=== PATIENT | female | born 1955 | race Caucasian/White ===

== ENCOUNTER → 2017-12-14 | Outpatient (CLI) | payer MEDICARE ==
[~2017-12-14] MED LIST: LIDOCAINE-MPF 1%, 5ML ONE
== END | disposition home or self-care (01) ==
LOC: RAD 13:50
PROVIDERS: ATTEND Otolaryngology
DX: E21.4 Other specified disorders of parathyroid gland (principal)
CPT/HCPCS: 10022; 76536; 76942; 88173

== ENCOUNTER 2018-03-13 20:27 | Inpatient (IN) | payer MEDICARE ==
[~2018-03-13] VITALS: Ht 167.6 cm; Wt 98.2 kg
[2018-03-13] MEDS ORDERED: methylPREDNISolone SOD SUCC 125 MG/2 ML ONE (21:15)
[2018-03-13 21:16] LABS: BASOPHILS # (AUTO) 0.01 x10^3/uL (0-0.1); BASOPHILS % (AUTO) 0 % (0-1); EOSINOPHILS # (AUTO) 0.02 x10^3/uL (0-0.4); EOSINOPHILS % (AUTO) 0 % (1-7); LYMPHOCYTES # (AUTO) 0.64 x10^3/uL (1-3.4); LYMPHOCYTES % (AUTO) 16 % (22-44); MD NO; MEAN CORPUSCULAR HEMOGLOBIN 28.1 pg (27.0-34.8); MEAN CORPUSCULAR HGB CONC 34.1 g/dL (32.4-35.8); MEAN CORPUSCULAR VOLUME 82.3 fL (80-100); MEAN PLATELET VOLUME 9.9 fL (7.4-10.4); MONOCYTES # (AUTO) 0.37 x10^3/uL (0.2-0.8); MONOCYTES % (AUTO) 9 % (2-9); NEUTROPHILS # (AUTO) 2.91 x10^3/uL (1.8-6.8); NEUTROPHILS % (AUTO) 74 % (42-75); PLATELET COUNT 151 x10^3/uL (130-400); RED BLOOD COUNT 4.93 x10^6/uL (3.82-5.3); RED CELL DISTRIBUTION WIDTH 17.9 % (9.6-15.2)
[2018-03-13] MEDS: methylPREDNISolone SOD SUCC 125 MG/2 ML IVPush SCH ×2 (21:19→22:30)
[2018-03-13 21:21] LABS: ALANINE AMINOTRANSFERASE 39 U/L (12-78); ALBUMIN 3.5 g/dL (3.4-5.0); ANION GAP 9 mmol/L (5-15); CALCIUM 8.8 mg/dL (8.5-10.1); CHLORIDE 108 mmol/L (98-107); CREATININE 0.78 mg/dL (0.55-1.02)
[2018-03-13 21:24] LABS: ALKALINE PHOSPHATASE 125 U/L (45-117); BILIRUBIN,TOTAL 0.5 mg/dL (0.2-1.0); TOTAL PROTEIN 7.1 g/dL (6.4-8.2)
[2018-03-13] MEDS ORDERED: ALBUTEROL SULFATE 2.5 MG/3 ML NPPB ONE (21:30)
[2018-03-13] MEDS ORDERED: SODIUM CHLORIDE 0.9%, 500ML IVBOLUS ONE (21:30)
[2018-03-13] MEDS ORDERED: ALBUTEROL/IPRATROPIUM 2.5MG/0.5MG, 3 ML NPPB ONE (21:30)
[2018-03-13 21:47] LABS: RAPID INFLUENZA A Negative (Negative)
[2018-03-13 21:48] LABS: RAPID INFLUENZA B POSITIVE (Negative)
[2018-03-13] MEDS ORDERED: CEFTRIAXONE PMX 1GM/50ML 50 ML ONE (22:08)
[2018-03-13] MEDS ORDERED: METF500T17 PO (22:23)
[2018-03-13] MEDS ORDERED: DILT360C26 PO (22:23)
[2018-03-13] MEDS ORDERED: ASPI-496 PO (22:23)
[2018-03-13] MEDS ORDERED: FERR324T18 PO (22:23)
[2018-03-13] MEDS ORDERED: IRBE1TAB13 PO (22:23)
[2018-03-13] MEDS ORDERED: LEVO125T5 PO (22:23)
[2018-03-13] MEDS ORDERED: GABA300C10 PO (22:23)
[2018-03-13] MEDS ORDERED: RED600CA2 PO (22:23)
[2018-03-13] MEDS ORDERED: PRAZ2CAP2 PO (22:23)
[2018-03-13] MEDS ORDERED: OMEP40CA6 PO (22:23)
[2018-03-13] MEDS ORDERED: CHOL500045 PO (22:23)
[2018-03-13] MEDS ORDERED: AZITHROMYCIN 500 MG in SODIUM CHLORIDE 0.9% 250 ML IV ONE (22:30)
[2018-03-13] MEDS ORDERED: ONDANSETRON 2MG/ML, 2ML IVPush PRN (22:30)
[2018-03-13] MEDS ORDERED: CEFTRIAXONE PMX 1GM/50ML 50 ML IV ONE (22:30)
[2018-03-13] MEDS ORDERED: LABETALOL 5MG/ML, 20ML IVPush PRN (22:30)
[2018-03-13] MEDS ORDERED: GUAIFENESIN/DM 200-20MG, 10ML UDC PO PRN (22:30)
[2018-03-13] MEDS ORDERED: ENALAPRILAT 1.25 MG/ML, 2ML IVPush PRN (22:30)
[2018-03-13] MEDS: CEFTRIAXONE PMX 1GM/50ML 50 ML IV SCH (22:30)
[2018-03-13] MEDS ORDERED: DEXTROSE 50%, 50ML SYRINGE IVPush PRN (23:00)
[2018-03-13] MEDS ORDERED: DEXTROSE 4 GM TAB.CHEW PO PRN (23:00)
[2018-03-13] MEDS ORDERED: GLUCAGON 1 MG IM PRN (23:00)
[2018-03-13] MEDS ORDERED: ENALAPRILAT 1.25 MG/ML, 2ML ONE (23:14)
--- NOTE | 2018-03-13 23:26 | NUR ---
PT UP TO RESTROOM AND BACK INTO BED. PT WITH MODERATE WOB UPON RETURN. PT NOW BACK IN BED RESTING
[2018-03-13 23:56] VITALS: BP 161/81
[2018-03-14] MEDS: methylPREDNISolone SOD SUCC 125 MG/2 ML IVPush SCH ×5 (00:08→22:22)
[2018-03-14] MEDS: OSELTAMIVIR 75 MG CAPSULE PO SCH ×3 (00:21→20:34)
[2018-03-14] MEDS: ENOXAPARIN 40 MG/0.4 ML SQ SCH (00:21)
[2018-03-14] MEDS: ACETAMINOPHEN 325 MG TABLET PO PRN ×3 (00:30→19:35)
[2018-03-14 02:00] VITALS: BP 158/81
[2018-03-14 05:14] LABS: BASOPHILS % (AUTO) 0 % (0-1); EOSINOPHILS % (AUTO) 0 % (1-7); LYMPHOCYTES # (AUTO) 0.35 x10^3/uL (1-3.4); LYMPHOCYTES % (AUTO) 9 % (22-44); MD NO; MEAN CORPUSCULAR HGB CONC 33.8 g/dL (32.4-35.8); MONOCYTES # (AUTO) 0.07 x10^3/uL (0.2-0.8); MONOCYTES % (AUTO) 2 % (2-9); NEUTROPHILS # (AUTO) 3.66 x10^3/uL (1.8-6.8); NEUTROPHILS % (AUTO) 90 % (42-75); PLATELET COUNT 131 x10^3/uL (130-400); RED BLOOD COUNT 4.74 x10^6/uL (3.82-5.3); RED CELL DISTRIBUTION WIDTH 17.8 % (9.6-15.2)
[2018-03-14 05:15] LABS: ALBUMIN 3.2 g/dL (3.4-5.0); ANION GAP 10 mmol/L (5-15); CALCIUM 8.6 mg/dL (8.5-10.1); CHLORIDE 110 mmol/L (98-107)
[2018-03-14 05:19] LABS: ALANINE AMINOTRANSFERASE 37 U/L (12-78); ALKALINE PHOSPHATASE 120 U/L (45-117); BILIRUBIN,TOTAL 0.4 mg/dL (0.2-1.0); CREATININE 0.79 mg/dL (0.55-1.02); TOTAL PROTEIN 6.7 g/dL (6.4-8.2)
[2018-03-14] MEDS: LEVOTHYROXINE 125 MCG TABLET PO SCH (05:34)
[2018-03-14] MEDS: GABAPENTIN 300 MG CAPSULE PO SCH ×4 (05:35→20:34)
[2018-03-14] MEDS: ASPIRIN 81 MG TABLET EC PO SCH (05:35)
[2018-03-14] MEDS: OMEPRAZOLE 20 MG CAPSULE.DR PO SCH (05:35)
[2018-03-14 07:44] VITALS: BP 171/94
[2018-03-14] MEDS: DILTIAZEM CD 180 MG CAP.ER.24H PO SCH (07:55)
[2018-03-14] MEDS: PRAZOSIN 2 MG CAPSULE PO SCH ×2 (07:55→20:35)
[2018-03-14] MEDS: IRBESARTAN 300 MG TABLET PO SCH (07:55)
[2018-03-14] MEDS: FERROUS GLUCONATE 324 MG TABLET PO SCH (07:55)
[2018-03-14] MEDS: DOXYCYCLINE 100MG TABLET PO SCH ×2 (07:56→20:33)
[2018-03-14] MEDS: HYDROCHLOROTHIAZIDE 12.5 MG CAPSULE PO SCH (07:56)
[2018-03-14] MEDS: SODIUM CHLORIDE FLUSH 10ML SYR IVF SCH ×2 (09:00→20:36)
[2018-03-14] MEDS: INSULIN LISPRO 100 UNITS/ML, PEN SQ-INSULIN SCH ×4 (09:04→21:16)
[2018-03-14 12:35] VITALS: BP 134/77
[2018-03-14 19:21] VITALS: BP 136/79
[2018-03-14] MEDS: INSULIN GLARGINE 100 UNITS/ML, PEN SQ-INSULIN SCH (21:14)
[2018-03-14] MEDS: CEFTRIAXONE PMX 1GM/50ML 50 ML IV SCH (22:22)
[2018-03-15] MEDS: ENOXAPARIN 40 MG/0.4 ML SQ SCH (00:18)
[2018-03-15 01:45] VITALS: BP 153/80
[2018-03-15] MEDS: methylPREDNISolone SOD SUCC 125 MG/2 ML IVPush SCH ×2 (04:20→11:01)
[2018-03-15] MEDS: OMEPRAZOLE 20 MG CAPSULE.DR PO SCH (05:52)
[2018-03-15] MEDS: LEVOTHYROXINE 125 MCG TABLET PO SCH (05:53)
[2018-03-15] MEDS: GABAPENTIN 300 MG CAPSULE PO SCH ×2 (05:53→11:00)
[2018-03-15] MEDS: ASPIRIN 81 MG TABLET EC PO SCH (05:53)
[2018-03-15 07:20] VITALS: BP 161/87
[2018-03-15] MEDS: INSULIN GLARGINE 100 UNITS/ML, PEN SQ-INSULIN SCH (07:45)
[2018-03-15] MEDS: INSULIN LISPRO 100 UNITS/ML, PEN SQ-INSULIN SCH ×2 (07:45→11:01)
[2018-03-15] MEDS: SODIUM CHLORIDE FLUSH 10ML SYR IVF SCH (07:47)
[2018-03-15] MEDS: IRBESARTAN 300 MG TABLET PO SCH (07:47)
[2018-03-15] MEDS: HYDROCHLOROTHIAZIDE 12.5 MG CAPSULE PO SCH (07:48)
[2018-03-15] MEDS: DILTIAZEM CD 180 MG CAP.ER.24H PO SCH (07:48)
[2018-03-15] MEDS: FERROUS GLUCONATE 324 MG TABLET PO SCH (07:48)
[2018-03-15] MEDS: PRAZOSIN 2 MG CAPSULE PO SCH (07:49)
[2018-03-15] MEDS: DOXYCYCLINE 100MG TABLET PO SCH (07:49)
[2018-03-15] MEDS: OSELTAMIVIR 75 MG CAPSULE PO SCH (07:49)
[2018-03-15 07:54] VITALS: BP 169/84
[2018-03-15] MEDS ORDERED: DOXY100T PO (09:46)
[2018-03-15 13:40] VITALS: BP 165/75
== END 2018-03-15 15:23 | disposition home or self-care (01) | DRG 871 ==
LOC: ED 22:23 → SUATTDRO 22:24 → EDIP 22:35 → 3NW 23:37
PROVIDERS: ADMIT Internal Medicine; ATTEND Internal Medicine
DX: A41.9 Sepsis, unspecified organism (principal); J10.08 Influenza due to other identified influenza virus with other specified pneumonia; J96.01 Acute respiratory failure with hypoxia; J18.1 Lobar pneumonia, unspecified organism; E11.40 Type 2 diabetes mellitus with diabetic neuropathy, unspecified; E11.65 Type 2 diabetes mellitus with hyperglycemia; H35.30 Unspecified macular degeneration; I10 Essential (primary) hypertension; J98.01 Acute bronchospasm; M34.9 Systemic sclerosis, unspecified; Z87.891 Personal history of nicotine dependence
CPT/HCPCS: 36415; 71045; 80053; 82962; 83605; 84145; 85025; 87040; 87400; 94640; G0378; J0456; J0696; J1650; J7613; J7620; J1815; J2930; J7040; J7050

== ENCOUNTER 2019-10-04 18:15 | Inpatient (IN) | payer MEDICARE ==
[~2019-10-04] VITALS: Ht 167.6 cm; Wt 97.2 kg
[2019-10-04] VITALS (9 sets, daily range): BP systolic 101–128; BP diastolic 41–81
[~2019-10-04 18:15] MED LIST changes: +ASPI-496 PO; +CHOL500045 PO; +DILT360C26 PO; +DOXY100T PO; +FERR324T18 PO; +GABA300C10 PO; +IRBE1TAB13 PO; +LEVO125T5 PO; -LIDOCAINE-MPF 1%, 5ML ONE; +METF500T17 PO; +OMEP40CA42 PO; +PRAZ2CAP2 PO; +RED600CA2 PO
[2019-10-04] MEDS ORDERED: GABA600T7 PO ×2 (18:38→21:41)
[2019-10-04] MEDS ORDERED: METH2.5T PO ×2 (18:38→21:41)
[2019-10-04] MEDS ORDERED: FOLI-17 PO ×2 (18:38→21:41)
[2019-10-04] MEDS ORDERED: TRIA15OI TP (18:38)
[2019-10-04] MEDS ORDERED: DILT360C32 PO (18:38)
[2019-10-04] MEDS ORDERED: METF10007 PO (18:38)
[2019-10-04] MEDS ORDERED: SODIUM CHLORIDE 0.9% 1,000 ML IV ONE (18:50)
[2019-10-04] MEDS ORDERED: PANTOPRAZOLE 80 MG in SODIUM CHLORIDE 0.9% 50 ML IVPB ONE (18:50)
[2019-10-04] MEDS ORDERED: PANTOPRAZOLE 80 MG in SODIUM CHLORIDE 0.9% 100 ML IV SCH (18:50)
[2019-10-04] MEDS ORDERED: AZIT500T PO (18:56)
--- NOTE | 2019-10-04 18:56 | NUR ---
A&OX4, RESP EVEN & UNLABORED, SPEECH CLEAR. C/O SORE THROAT X 12 DAYS. HAS BEEN TAKING Z-GRISELDA (ONE MORE DOSE TO GO). DENIES FEVER. REPORTS DIARRHEA W/ DARK STOOL.
--- NOTE | 2019-10-04 18:57 | NUR ---
EKG AT BS
[2019-10-04] MEDS ORDERED: SODIUM CHLORIDE FLUSH 10ML SYR IVF ONE (19:00)
--- NOTE | 2019-10-04 19:10 | NUR ---
IV ATTEMPTED X 1; UNSUCCESSFUL
[2019-10-04 19:26] LABS: INTERNATIONAL NORMALIZED RATIO 1.04 (0.93-1.1); PROTHROMBIN TIME 10.7 Seconds (9.6-11.5)
[2019-10-04 19:29] LABS: % IRON SATURATION 82 % (20-55); ALANINE AMINOTRANSFERASE 58 U/L (12-78); ALBUMIN 2.9 g/dL (3.4-5.0); ANION GAP 6 mmol/L (5-15); CALCIUM 7.6 mg/dL (8.5-10.1); CHLORIDE 111 mmol/L (98-107); CREATININE 1.32 mg/dL (0.55-1.02); IRON LEVEL 201 mcg/dL (50-170); TOTAL IRON BINDING CAPACITY 246 mcg/dL (250-450)
[2019-10-04 19:44] LABS: MEAN CORPUSCULAR HEMOGLOBIN 35.5 pg (27.0-34.8); MEAN CORPUSCULAR HGB CONC 33.6 g/dL (32.4-35.8); MEAN CORPUSCULAR VOLUME 105.8 fL (80-100); MEAN PLATELET VOLUME 9.7 fL (7.4-10.4); PLATELET COUNT 64 x10^3/uL (130-400); RED BLOOD COUNT 1.65 x10^6/uL (3.82-5.3); RED CELL DISTRIBUTION WIDTH 29.6 % (9.6-15.2)
[2019-10-04 19:59] LABS: ALKALINE PHOSPHATASE 63 U/L (45-117); BILIRUBIN,TOTAL 0.7 mg/dL (0.2-1.0); HCT (SEDRATE) 17.4 % (34.6-47.8); TOTAL PROTEIN 5.3 g/dL (6.4-8.2)
[2019-10-04] MEDS ORDERED: MAGNESIUM SULFATE PMX 2GM/50ML 50 ML IV ONE (20:00)
--- NOTE | 2019-10-04 20:02 | NUR ---
IV ATTEMPTED X 2; UNSUCCESSFUL. WILL SEEK ASSISTANCE.
[2019-10-04 20:05] LABS: MD YES
[2019-10-04 20:12] LABS: EOS#(MANUAL) 0.09 x10^3/uL (0.0-0.4); EOS% (MANUAL) 4 % (1-7); LYMPH#(MANUAL) 0.41 x10^3/uL (1-3.4); LYMPHS% (MANUAL) 18 % (22-44); MONOS#(MANUAL) 0.02 x10^3/uL (0.3-2.7); MONOS% (MANUAL) 1 % (2-9); SEG#(MANUAL) 1.77 x10^3/uL (1.8-6.8); SEGS% (MANUAL) 77 % (42-75)
[2019-10-04 20:18] LABS: ANISOCYTOSIS 1+
[2019-10-04] MEDS ORDERED: MAGNESIUM SULFATE PMX 2GM/50ML 50 ML ONE (20:18)
[2019-10-04 20:19] LABS: <PLATELET ESTIMATE> DECREASED; OVALOCYTES 1+
[2019-10-04 20:23] LABS: <PLT MORPHOLOGY> NORMAL PLT MORPH
--- NOTE | 2019-10-04 20:25 | NUR ---
records request faxed to [facility]
--- NOTE | 2019-10-04 20:35 | NUR ---
DR RYAN AT
--- NOTE | 2019-10-04 20:58 | NUR ---
BLOOD TRANSFUSION EDUCATION DOCUMENT PROVIDED TO PT. BLOOD CONSENT SIGNED BY PT.
[2019-10-04] MEDS: PANTOPRAZOLE 80 MG in SODIUM CHLORIDE 0.9% 100 ML IV SCH (21:00)
[2019-10-04] MEDS ORDERED: OCTREOTIDE 50 MCG/ML, 1ML (0.05MG/ML) IVPush ONE (21:00)
--- NOTE | 2019-10-04 21:00 | NUR ---
PT AMBULATORY TO & FROM BONE BR W/OUT INCIDENT; GAIT STEADY; CHOSE TO WALK W/OUT OXYGEN. VOIDED SPECIMEN PROVIDED. RETURNED TO [facility], [place]. ROOM O2 SAT 88%. O2 2-1/2LNC REAPPLIED.
--- NOTE | 2019-10-04 21:07 | NUR ---
TRANSFUSION INITIATED
--- NOTE | 2019-10-04 21:10 | NUR ---
ISIS Elena NP AT BS. BLOOD INFUSING VIA GRAVITY FLOW. NO COMPLAINTS FROM PT REGARDING IV SITE.
[2019-10-04] MEDS ORDERED: hydrALAzine 20 MG/ML, 1ML IVPush PRN (21:30)
[2019-10-04] MEDS ORDERED: ONDANSETRON 2MG/ML, 2ML IVPush PRN (21:30)
[2019-10-04] MEDS ORDERED: LIDODERM 5% PATCH TD PRN (21:30)
[2019-10-04] MEDS ORDERED: DILT300C42 PO (21:41)
[2019-10-04] MEDS ORDERED: FERR324T18 PO (21:41)
[2019-10-04] MEDS ORDERED: IRBE1TAB13 PO (21:41)
[2019-10-04] MEDS ORDERED: METF500T17 PO (21:41)
[2019-10-04] MEDS ORDERED: ASPI-496 PO (21:41)
[2019-10-04] MEDS ORDERED: LEVO25TA4 PO (21:41)
[2019-10-04] MEDS ORDERED: OMEP40CA42 PO (21:41)
[2019-10-04] MEDS ORDERED: VITAMIN D PO (21:41)
--- NOTE | 2019-10-04 21:48 | NUR ---
PROTONIX BOLUS INFUSION COMPLETED.
[2019-10-04] MEDS ORDERED: PHENOL THROAT SPRAY BOTTLE MM PRN (22:00)
--- NOTE | 2019-10-04 22:10 | NUR ---
BLOOD TRANSFUSION UNIT #1 INFUSED. PT TOLERATED INFUSION WELL. NO COMPLAINTS ABOUT UPPER ARM IV SITE.
[2019-10-04 22:11] LABS: ABSOLUTE RETICS # 0.039 x10^6/uL (0.5-2.5); RETICULOCYTE COUNT % 2.39 % (0.5-1.5)
[2019-10-04 22:13] LABS: RED BLOOD COUNT 1.65 x10^6/uL (3.82-5.3)
--- NOTE | 2019-10-04 22:24 | NUR ---
PT REPORT TO MIGUEL EARL. PT CARE TRANSFERRED.
--- NOTE | 2019-10-04 22:26 | NUR ---
REPORT RECIEVED FROM MIGUEL RAMIREZ.
[2019-10-04 22:32] LABS: MICROSCOPIC INDICATED
[2019-10-04] MEDS ORDERED: OCTREOTIDE 100MCG/ML, 1ML (0.1MG/ML) ONE (22:33)
--- NOTE | 2019-10-04 22:58 | NUR ---
TRANSFUSION STARTED ON SECOND UNIT OF PACKED RED BLOOD CELLS. PATIENT UPDATED ON PLAN OF CARE. SEE ADDITIONAL CHARTING IN TRANSUFSION DOCUMATION. PATIENT DISPLEASED WITH THE AMOUNT OF TIME IT IS TAKING TO HAVE HER TRANSFERED TO FLOOR DUE TO THE BED BEING UNCOMFORTABLE. NO ADDITIONAL NEEDS NOTED AT THIS TIME. PATIENT VERBALIZED UNDERSTANDING OF BLOOD ADMNISTRATION PROCESS.
--- NOTE | 2019-10-04 23:38 | NUR ---
PATIENT TRANSFERED TO FLOOR WITH BLOOD PRODUCT ADMINISTRATING. PATIENT FINISHED FIRST 30MINS OF ADMINISTRATION PRIOR TO TRANSPORTATION. MIGUEL GONZALEZ RECEIVED REPORT.
[2019-10-05] VITALS (9 sets, daily range): BP systolic 112–154; BP diastolic 71–82
[2019-10-05 06:20] LABS: ANION GAP 4 mmol/L (5-15); CALCIUM 7.9 mg/dL (8.5-10.1); CHLORIDE 114 mmol/L (98-107); CREATININE 1.06 mg/dL (0.55-1.02)
[2019-10-05 06:42] LABS: MD YES; MEAN CORPUSCULAR HEMOGLOBIN 32.7 pg (27.0-34.8); MEAN CORPUSCULAR HGB CONC 33.2 g/dL (32.4-35.8); MEAN CORPUSCULAR VOLUME 98.7 fL (80-100); MEAN PLATELET VOLUME 9.1 fL (7.4-10.4); RED BLOOD COUNT 2.74 x10^6/uL (3.82-5.3); RED CELL DISTRIBUTION WIDTH 25.1 % (9.6-15.2)
[2019-10-05 06:44] LABS: PLATELET COUNT 42 x10^3/uL (130-400)
[2019-10-05 06:45] LABS: ANISOCYTOSIS 1+; EOS#(MANUAL) 0.07 x10^3/uL (0.0-0.4); EOS% (MANUAL) 3 % (1-7); LYMPH#(MANUAL) 0.22 x10^3/uL (1-3.4); LYMPHS% (MANUAL) 10 % (22-44); OVALOCYTES 1+; SEG#(MANUAL) 1.91 x10^3/uL (1.8-6.8); SEGS% (MANUAL) 87 % (42-75); TEAR DROPS 1+
[2019-10-05 06:46] LABS: <PLATELET ESTIMATE> DECREASED; <PLT MORPHOLOGY> NORMAL PLT MORPH
[2019-10-05] MEDS: NYSTATIN/TRIAMCINOLONE OINT 15GM TP SCH ×2 (09:20→21:47)
[2019-10-05] MEDS: OCTREOTIDE 500 MCG in SODIUM CHLORIDE 0.9% 99 ML IV SCH (09:20)
[2019-10-05] MEDS: PANTOPRAZOLE 80 MG in SODIUM CHLORIDE 0.9% 100 ML IV SCH ×2 (10:02→18:16)
[2019-10-05] MEDS: ACETAMINOPHEN 325 MG TABLET PO PRN ×2 (12:34→18:07)
[2019-10-05] MEDS: LACTATED RINGERS 1,000 ML IV SCH (14:30)
[2019-10-05] MEDS: GABAPENTIN 300 MG CAPSULE PO SCH ×2 (15:37→21:47)
[2019-10-05] MEDS ORDERED: OMNIPAQUE 350 MG/ML, 100ML BOTTLE ONE (17:16)
[2019-10-05] MEDS: DILTIAZEM 300 MG CAP.ER.24H PO SCH (18:07)
[2019-10-06 01:05] VITALS: BP 112/68
[2019-10-06] MEDS: PANTOPRAZOLE 80 MG in SODIUM CHLORIDE 0.9% 100 ML IV SCH (03:12)
[2019-10-06] MEDS: LACTATED RINGERS 1,000 ML IV SCH ×2 (03:13→19:48)
[2019-10-06] MEDS: LEVOTHYROXINE 125 MCG TABLET PO SCH (05:31)
[2019-10-06] MEDS: OCTREOTIDE 500 MCG in SODIUM CHLORIDE 0.9% 99 ML IV SCH (05:31)
[2019-10-06 05:47] LABS: ALANINE AMINOTRANSFERASE 58 U/L (12-78); ALBUMIN 3.2 g/dL (3.4-5.0); ANION GAP 4 mmol/L (5-15); CALCIUM 8.3 mg/dL (8.5-10.1); CHLORIDE 110 mmol/L (98-107); CREATININE 0.85 mg/dL (0.55-1.02)
[2019-10-06 05:50] LABS: ALKALINE PHOSPHATASE 71 U/L (45-117); BILIRUBIN,TOTAL 1.6 mg/dL (0.2-1.0); TOTAL PROTEIN 5.7 g/dL (6.4-8.2)
[2019-10-06 06:32] LABS: MEAN CORPUSCULAR HEMOGLOBIN 33.6 pg (27.0-34.8); MEAN CORPUSCULAR HGB CONC 34.8 g/dL (32.4-35.8); MEAN CORPUSCULAR VOLUME 96.5 fL (80-100); MEAN PLATELET VOLUME 9.4 fL (7.4-10.4); RED BLOOD COUNT 2.57 x10^6/uL (3.82-5.3); RED CELL DISTRIBUTION WIDTH 23.1 % (9.6-15.2)
[2019-10-06 06:33] LABS: MD YES
[2019-10-06 06:34] LABS: PLATELET COUNT 47 x10^3/uL (130-400)
[2019-10-06 06:36] LABS: ANISOCYTOSIS 1+; EOS#(MANUAL) 0.05 x10^3/uL (0.0-0.4); EOS% (MANUAL) 3 % (1-7); LYMPH#(MANUAL) 0.25 x10^3/uL (1-3.4); LYMPHS% (MANUAL) 14 % (22-44); NRBC % (MANUAL) 1 % (0-1); SEG#(MANUAL) 1.49 x10^3/uL (1.8-6.8); SEGS% (MANUAL) 83 % (42-75)
[2019-10-06 06:37] LABS: OVALOCYTES 1+
[2019-10-06 06:38] LABS: <PLATELET ESTIMATE> DECREASED; <PLT MORPHOLOGY> NORMAL PLT MORPH; TEAR DROPS 1+
[2019-10-06] MEDS: INSULIN LISPRO 100 UNITS/ML, PEN SQ-INSULIN SCH ×4 (07:00→20:57)
[2019-10-06 07:52] VITALS: BP 130/79
[2019-10-06] MEDS: FOLIC ACID 1 MG TABLET PO SCH (07:55)
[2019-10-06] MEDS: GABAPENTIN 300 MG CAPSULE PO SCH ×2 (07:55→20:57)
[2019-10-06] MEDS: NYSTATIN/TRIAMCINOLONE OINT 15GM TP SCH ×2 (07:56→20:57)
[2019-10-06 07:57] LABS: D-DIMER (DIC) 2.23 ug/mlFEU (0.00-0.52); PROTIME 10.7 Seconds (9.6-11.5)
[2019-10-06] MEDS ORDERED: CHLORHEXIDINE 15 ML UDC ONE ×2 (08:36→08:39)
[2019-10-06] MEDS ORDERED: CHLORHEXIDINE 15 ML UDC MM ONE (09:00)
[2019-10-06] MEDS ORDERED: DILTIAZEM 300 MG CAP.ER.24H PO SCH (09:00)
[2019-10-06] MEDS ORDERED: DILTIAZEM CD 180 MG CAP.ER.24H PO SCH (09:00)
[2019-10-06] MEDS ORDERED: METHOTREXATE 2.5 MG TABLET PO SCH (09:00)
[2019-10-06] MEDS ORDERED: OXYcodone 5 MG/5 ML ORAL.SOL UDC ONE (09:15)
[2019-10-06] MEDS ORDERED: ACETAMINOPHEN 650 MG/20.3 ML UDC ONE (09:15)
[2019-10-06] MEDS ORDERED: DIAZEPAM 5 MG/ML, 2ML IVPush PRN (09:30)
[2019-10-06] MEDS ORDERED: MEPERIDINE/PF 25MG/0.5ML IVPush PRN (09:30)
[2019-10-06] MEDS ORDERED: OXYcodone 5 MG/5 ML ORAL.SOL UDC PO PRN (09:30)
[2019-10-06] MEDS ORDERED: FENTANYL PF 100 MCG/2ML IV PRN (09:30)
[2019-10-06] MEDS ORDERED: ACETAMINOPHEN 325 MG TABLET PO PRN (09:30)
[2019-10-06] MEDS ORDERED: KETOROLAC 30 MG/1 ML IV PRN (09:30)
[2019-10-06] MEDS ORDERED: HYDROmorphone 2 MG/ML, 1ML IVPush PRN (09:30)
[2019-10-06] MEDS ORDERED: PROMETHAZINE 25 MG/ML, 1ML IV PRN (09:30)
[2019-10-06] MEDS ORDERED: LABETALOL 5MG/ML, 20ML IV PRN (09:30)
[2019-10-06] MEDS ORDERED: hydrALAzine 20 MG/ML, 1ML IV PRN (09:30)
[2019-10-06] MEDS ORDERED: ALBUTEROL SULFATE 2.5 MG/3 ML NPPB PRN (09:30)
[2019-10-06] MEDS: DILTIAZEM 300 MG CAP.ER.24H PO SCH (10:55)
[2019-10-06] MEDS: CEFTRIAXONE PMX 1GM/50ML 50 ML IV SCH (12:10)
[2019-10-06 12:22] VITALS: BP 132/71
[2019-10-06] MEDS: OXYcodone 5 MG/5 ML ORAL.SOL UDC PO PRN ×2 (13:30→17:42)
[2019-10-06] MEDS: FLUCONAZOLE 200 MG/100 ML 100 ML IV SCH (13:30)
[2019-10-06] MEDS: maalox/diphenh/lido/sucralfate 5 ML PO SCH (16:00)
[2019-10-06] MEDS ORDERED: PROPOFOL 10 MG/ML, 50ML ONE (16:18)
[2019-10-06 16:27] VITALS: BP 129/73
[2019-10-06] MEDS: ACETAMINOPHEN 650 MG/20.3 ML UDC PO PRN (17:42)
[2019-10-06 19:57] VITALS: BP 134/76
[2019-10-07 00:22] VITALS: BP 160/82
[2019-10-07] MEDS: ACETAMINOPHEN 650 MG/20.3 ML UDC PO PRN ×2 (00:32→06:27)
[2019-10-07] MEDS: OXYcodone 5 MG/5 ML ORAL.SOL UDC PO PRN ×2 (00:36→06:27)
[2019-10-07 04:49] LABS: ABSOLUTE RETICS # 0.058 x10^6/uL (0.5-2.5); RED BLOOD COUNT 2.55 x10^6/uL (3.82-5.3); RETICULOCYTE COUNT % 2.29 % (0.5-1.5)
[2019-10-07] MEDS: LEVOTHYROXINE 125 MCG TABLET PO SCH (06:24)
[2019-10-07 06:35] LABS: ANION GAP 4 mmol/L (5-15); CALCIUM 8.4 mg/dL (8.5-10.1); CHLORIDE 111 mmol/L (98-107); CREATININE 0.75 mg/dL (0.55-1.02)
[2019-10-07 06:43] LABS: MEAN CORPUSCULAR HEMOGLOBIN 33.1 pg (27.0-34.8); MEAN CORPUSCULAR HGB CONC 34.2 g/dL (32.4-35.8); RED BLOOD COUNT 2.52 x10^6/uL (3.82-5.3); RED CELL DISTRIBUTION WIDTH 23.5 % (9.6-15.2)
[2019-10-07] MEDS: INSULIN LISPRO 100 UNITS/ML, PEN SQ-INSULIN SCH ×4 (07:00→21:00)
[2019-10-07 07:02] LABS: MD YES; MEAN PLATELET VOLUME 9.7 fL (7.4-10.4)
[2019-10-07 07:06] LABS: <PLATELET ESTIMATE> DECREASED; <PLT MORPHOLOGY> NORMAL PLT MORPH; ANISOCYTOSIS 1+; LYMPH#(MANUAL) 0.36 x10^3/uL (1-3.4); LYMPHS% (MANUAL) 19 % (22-44); MONOS#(MANUAL) 0.06 x10^3/uL (0.3-2.7); MONOS% (MANUAL) 3 % (2-9); OVALOCYTES 1+; SEG#(MANUAL) 1.48 x10^3/uL (1.8-6.8); SEGS% (MANUAL) 78 % (42-75); TEAR DROPS 1+
[2019-10-07 07:10] LABS: PLATELET COUNT 39 x10^3/uL (130-400)
[2019-10-07 07:20] VITALS: BP 135/76
[2019-10-07] MEDS: NYSTATIN/TRIAMCINOLONE OINT 15GM TP SCH ×2 (09:00→21:00)
[2019-10-07] MEDS: maalox/diphenh/lido/sucralfate 5 ML PO SCH ×3 (09:52→17:17)
[2019-10-07] MEDS: LACTATED RINGERS 1,000 ML IV SCH ×2 (09:52→17:00)
[2019-10-07] MEDS: GABAPENTIN 300 MG CAPSULE PO SCH ×2 (09:54→21:30)
[2019-10-07] MEDS: FOLIC ACID 1 MG TABLET PO SCH (09:54)
[2019-10-07] MEDS: DILTIAZEM 300 MG CAP.ER.24H PO SCH (09:54)
[2019-10-07] MEDS ORDERED: HYDROmorphone 1 MG/ML, 1ML INJ IM PRN (11:00)
[2019-10-07 12:44] VITALS: BP 137/75
[2019-10-07] MEDS ORDERED: FLUMAZENIL 0.1 MG/1 ML, 5ML ONE (13:01)
[2019-10-07] MEDS ORDERED: NALOXONE 1 MG/ML, 2ML ONE (13:01)
[2019-10-07] MEDS ORDERED: MIDAZOLAM 1 MG/ML, 5ML ONE (13:01)
[2019-10-07] MEDS ORDERED: FENTANYL PF 100 MCG/2ML ONE (13:01)
[2019-10-07] MEDS: FLUCONAZOLE 200 MG/100 ML 100 ML IV SCH (15:01)
[2019-10-07] MEDS: CEFTRIAXONE PMX 1GM/50ML 50 ML IV SCH (15:02)
[2019-10-07 16:25] LABS: ANA SCREEN POSITIVE (Negative); ANTI-NUCLEAR ANTIBODY PATTERN CENTROMERE
[2019-10-07] MEDS: HYDROmorphone 1 MG/ML, 1ML INJ IVPush PRN ×2 (17:17→21:37)
[2019-10-07 20:06] VITALS: BP 142/75
[2019-10-08 02:23] VITALS: BP 136/69
[2019-10-08 05:50] LABS: MEAN CORPUSCULAR HEMOGLOBIN 32.7 pg (27.0-34.8); MEAN CORPUSCULAR HGB CONC 33.7 g/dL (32.4-35.8); MEAN CORPUSCULAR VOLUME 97.1 fL (80-100); MEAN PLATELET VOLUME 9.4 fL (7.4-10.4); RED BLOOD COUNT 2.22 x10^6/uL (3.82-5.3); RED CELL DISTRIBUTION WIDTH 22.8 % (9.6-15.2)
[2019-10-08 05:53] LABS: CHLORIDE 111 mmol/L (98-107)
[2019-10-08 05:58] LABS: PLATELET COUNT 25 x10^3/uL (130-400)
[2019-10-08 06:01] LABS: ALANINE AMINOTRANSFERASE 54 U/L (12-78); ALBUMIN 2.6 g/dL (3.4-5.0); ALKALINE PHOSPHATASE 64 U/L (45-117); ANION GAP 3 mmol/L (5-15); BILIRUBIN,TOTAL 0.7 mg/dL (0.2-1.0); CALCIUM 8.1 mg/dL (8.5-10.1); CREATININE 0.67 mg/dL (0.55-1.02); TOTAL PROTEIN 4.9 g/dL (6.4-8.2)
[2019-10-08 06:12] LABS: MD YES
[2019-10-08 06:14] LABS: ANISOCYTOSIS 1+; EOS#(MANUAL) 0.11 x10^3/uL (0.0-0.4); EOS% (MANUAL) 7 % (1-7); LYMPH#(MANUAL) 0.32 x10^3/uL (1-3.4); LYMPHS% (MANUAL) 21 % (22-44); MONOS#(MANUAL) 0.06 x10^3/uL (0.3-2.7); MONOS% (MANUAL) 4 % (2-9); OVALOCYTES 1+; SEG#(MANUAL) 1.02 x10^3/uL (1.8-6.8); SEGS% (MANUAL) 68 % (42-75); TEAR DROPS 1+
[2019-10-08 06:15] LABS: <PLATELET ESTIMATE> DECREASED; <PLT MORPHOLOGY> NORMAL PLT MORPH
[2019-10-08] MEDS: HYDROmorphone 1 MG/ML, 1ML INJ IVPush PRN ×4 (06:32→21:41)
[2019-10-08] MEDS: LEVOTHYROXINE 125 MCG TABLET PO SCH (06:32)
[2019-10-08] MEDS: INSULIN LISPRO 100 UNITS/ML, PEN SQ-INSULIN SCH ×4 (07:00→21:00)
[2019-10-08 07:56] VITALS: BP 151/82
[2019-10-08] MEDS: DILTIAZEM 300 MG CAP.ER.24H PO SCH (08:37)
[2019-10-08] MEDS: GABAPENTIN 300 MG CAPSULE PO SCH ×2 (08:38→21:38)
[2019-10-08] MEDS: maalox/diphenh/lido/sucralfate 5 ML PO SCH (08:38)
[2019-10-08] MEDS: FOLIC ACID 1 MG TABLET PO SCH (08:38)
[2019-10-08] MEDS: NYSTATIN/TRIAMCINOLONE OINT 15GM TP SCH ×2 (08:39→21:00)
[2019-10-08 12:15] LABS: CLOSTRIDIUM DIFFICILE ANTIGEN NEGATIVE; CLOSTRIDIUM DIFFICILE TOXIN NEGATIVE (Negative)
[2019-10-08] MEDS: [UNRECOGNIZED DRUG - REMARK] PO SCH ×4 (12:28→23:39)
[2019-10-08] MEDS: CEFTRIAXONE PMX 1GM/50ML 50 ML IV SCH (12:28)
[2019-10-08] MEDS: FLUCONAZOLE 200 MG/100 ML 100 ML IV SCH (13:12)
[2019-10-08 13:47] VITALS: BP 117/61
[2019-10-08 20:21] VITALS: BP 149/46
[2019-10-09 02:00] VITALS: BP 138/54
[2019-10-09] MEDS: HYDROmorphone 1 MG/ML, 1ML INJ IVPush PRN ×4 (02:33→20:01)
[2019-10-09 02:41] VITALS: BP 155/77
[2019-10-09] MEDS: [UNRECOGNIZED DRUG - REMARK] PO SCH ×5 (06:09→22:06)
[2019-10-09] MEDS: LEVOTHYROXINE 125 MCG TABLET PO SCH (06:09)
[2019-10-09 06:25] LABS: MEAN CORPUSCULAR HEMOGLOBIN 32.8 pg (27.0-34.8); MEAN CORPUSCULAR HGB CONC 33.3 g/dL (32.4-35.8); MEAN CORPUSCULAR VOLUME 98.5 fL (80-100); MEAN PLATELET VOLUME 9.3 fL (7.4-10.4); RED BLOOD COUNT 2.36 x10^6/uL (3.82-5.3); RED CELL DISTRIBUTION WIDTH 23.7 % (9.6-15.2)
[2019-10-09 06:36] LABS: PLATELET COUNT 25 x10^3/uL (130-400)
[2019-10-09 06:44] LABS: MD YES
[2019-10-09 06:47] LABS: ANISOCYTOSIS 1+; BAND#(MANUAL) 0.03 x10^3/uL; BANDS%(MANUAL) 1 % (0-7); EOS% (MANUAL) 4 % (1-7); LYMPH#(MANUAL) 0.34 x10^3/uL (1-3.4); LYMPHS% (MANUAL) 13 % (22-44); MONOS% (MANUAL) 4 % (2-9); OVALOCYTES 1+; SEG#(MANUAL) 2.03 x10^3/uL (1.8-6.8); SEGS% (MANUAL) 78 % (42-75); TEAR DROPS 1+
[2019-10-09 06:48] LABS: <PLATELET ESTIMATE> DECREASED; <PLT MORPHOLOGY> NORMAL PLT MORPH; POLYCHROMASIA 1+
[2019-10-09] MEDS: INSULIN LISPRO 100 UNITS/ML, PEN SQ-INSULIN SCH ×4 (07:00→19:59)
[2019-10-09 08:18] VITALS: BP 146/77
[2019-10-09] MEDS: FOLIC ACID 1 MG TABLET PO SCH (08:37)
[2019-10-09] MEDS: GABAPENTIN 300 MG CAPSULE PO SCH ×2 (08:37→19:59)
[2019-10-09] MEDS: DILTIAZEM 300 MG CAP.ER.24H PO SCH (08:38)
[2019-10-09] MEDS: NYSTATIN/TRIAMCINOLONE OINT 15GM TP SCH ×2 (09:00→20:00)
[2019-10-09] MEDS: LACTATED RINGERS 1,000 ML IV SCH (10:00)
[2019-10-09] MEDS: CEFTRIAXONE PMX 1GM/50ML 50 ML IV SCH ×2 (12:12→15:25)
[2019-10-09 15:14] VITALS: BP 157/79
[2019-10-09 19:07] VITALS: BP 170/85
[2019-10-10 00:08] VITALS: BP 159/80
[2019-10-10] MEDS: HYDROmorphone 1 MG/ML, 1ML INJ IVPush PRN ×6 (00:12→22:41)
[2019-10-10] MEDS: [UNRECOGNIZED DRUG - REMARK] PO SCH (05:41)
[2019-10-10] MEDS: LEVOTHYROXINE 125 MCG TABLET PO SCH (05:41)
[2019-10-10 05:53] LABS: MD YES; MEAN CORPUSCULAR HEMOGLOBIN 33.2 pg (27.0-34.8); MEAN CORPUSCULAR HGB CONC 33.8 g/dL (32.4-35.8); MEAN CORPUSCULAR VOLUME 98.4 fL (80-100); MEAN PLATELET VOLUME 9.9 fL (7.4-10.4); RED BLOOD COUNT 2.37 x10^6/uL (3.82-5.3); RED CELL DISTRIBUTION WIDTH 26.3 % (9.6-15.2)
[2019-10-10 05:55] LABS: BAND#(MANUAL) 0.04 x10^3/uL; BANDS%(MANUAL) 1 % (0-7); EOS#(MANUAL) 0.11 x10^3/uL (0.0-0.4); EOS% (MANUAL) 3 % (1-7); METAMYELOCYTES# (MANUAL) 0.04 x10^3/uL (0-0); METAMYELOCYTES% (MANUAL) 1 % (0-1); NRBC % (MANUAL) 2 % (0-1)
[2019-10-10 05:56] LABS: ANISOCYTOSIS 2+; LYMPH#(MANUAL) 0.42 x10^3/uL (1-3.4); LYMPHS% (MANUAL) 12 % (22-44); MICROCYTOSIS 1+; MONOS#(MANUAL) 0.32 x10^3/uL (0.3-2.7); MONOS% (MANUAL) 9 % (2-9); SEG#(MANUAL) 2.59 x10^3/uL (1.8-6.8); SEGS% (MANUAL) 74 % (42-75)
[2019-10-10 05:57] LABS: OVALOCYTES 1+; PLATELET COUNT 16 x10^3/uL (130-400); POLYCHROMASIA 1+; TEAR DROPS 1+
[2019-10-10 05:58] LABS: <PLATELET ESTIMATE> DECREASED; <PLT MORPHOLOGY> NORMAL PLT MORPH
[2019-10-10] MEDS: INSULIN LISPRO 100 UNITS/ML, PEN SQ-INSULIN SCH ×4 (08:26→22:13)
[2019-10-10] MEDS ORDERED: SODIUM CHLORIDE NASAL SPRAY 45ML BOTTLE NAS PRN (09:30)
[2019-10-10 09:31] VITALS: BP 151/77
[2019-10-10] MEDS ORDERED: SUCRALFATE 1 GM/10 ML UDC ONE (09:40)
[2019-10-10] MEDS ORDERED: DIPHENHYDRAMINE 12.5MG/5ML, 10ML UDC ONE (09:40)
[2019-10-10] MEDS ORDERED: LIDOCAINE 2% VISCOUS 15 ML UDC ONE (09:40)
[2019-10-10] MEDS ORDERED: prednisOLONE 15 MG/5 ML ORAL SOLN ONE (09:40)
[2019-10-10] MEDS ORDERED: ALUMINUM/MAG/SIMETHICONE 30 ML UDC ONE (09:40)
[2019-10-10] MEDS: DILTIAZEM 300 MG CAP.ER.24H PO SCH (09:44)
[2019-10-10] MEDS: GABAPENTIN 300 MG CAPSULE PO SCH ×2 (09:44→22:02)
[2019-10-10] MEDS: FOLIC ACID 1 MG TABLET PO SCH (09:44)
[2019-10-10] MEDS: IRBESARTAN 150 MG TABLET PO SCH ×2 (09:45→22:02)
[2019-10-10] MEDS: NYSTATIN/TRIAMCINOLONE OINT 15GM TP SCH ×2 (09:45→22:06)
[2019-10-10] MEDS: MAALOX PO SCH ×4 (10:00→22:05)
[2019-10-10] MEDS: CARAFATE PO SCH ×4 (10:00→22:05)
[2019-10-10] MEDS ORDERED: MAALOX PO SCH (10:00)
[2019-10-10] MEDS ORDERED: BENADRYL PO SCH (10:00)
[2019-10-10] MEDS: PREDNISOLONE PO SCH ×4 (10:00→22:05)
[2019-10-10] MEDS: BENADRYL PO SCH ×4 (10:00→22:05)
[2019-10-10] MEDS ORDERED: LIDO PO SCH (10:00)
[2019-10-10] MEDS ORDERED: CARAFATE PO SCH (10:00)
[2019-10-10] MEDS: LIDO PO SCH ×4 (10:00→22:05)
[2019-10-10] MEDS ORDERED: PREDNISOLONE PO SCH (10:00)
[2019-10-10 14:06] VITALS: BP 161/82
[2019-10-10 19:11] VITALS: BP 154/79
[2019-10-11 01:51] VITALS: BP 141/67
[2019-10-11] MEDS: HYDROmorphone 1 MG/ML, 1ML INJ IVPush PRN ×6 (02:46→23:27)
[2019-10-11] MEDS: PREDNISOLONE PO SCH ×2 (02:49→06:41)
[2019-10-11] MEDS: LIDO PO SCH ×2 (02:49→06:41)
[2019-10-11] MEDS: CARAFATE PO SCH ×2 (02:49→06:41)
[2019-10-11] MEDS: BENADRYL PO SCH ×2 (02:49→06:41)
[2019-10-11] MEDS: MAALOX PO SCH ×2 (02:49→06:41)
[2019-10-11 04:57] LABS: MEAN CORPUSCULAR HEMOGLOBIN 32.2 pg (27.0-34.8); MEAN CORPUSCULAR HGB CONC 32.8 g/dL (32.4-35.8); MEAN PLATELET VOLUME 10.1 fL (7.4-10.4); RED BLOOD COUNT 2.31 x10^6/uL (3.82-5.3); RED CELL DISTRIBUTION WIDTH 26.6 % (9.6-15.2)
[2019-10-11 04:59] LABS: PLATELET COUNT 23 x10^3/uL (130-400)
[2019-10-11 05:45] LABS: MD YES
[2019-10-11 05:48] LABS: ANISOCYTOSIS 2+; BANDS%(MANUAL) 2 % (0-7); EOS% (MANUAL) 4 % (1-7); LYMPH#(MANUAL) 0.61 x10^3/uL (1-3.4); LYMPHS% (MANUAL) 12 % (22-44); METAMYELOCYTES# (MANUAL) 0.05 x10^3/uL (0-0); METAMYELOCYTES% (MANUAL) 1 % (0-1); MICROCYTOSIS 1+; MONOS#(MANUAL) 0.51 x10^3/uL (0.3-2.7); MONOS% (MANUAL) 10 % (2-9); NRBC % (MANUAL) 5 % (0-1); OVALOCYTES 1+; POLYCHROMASIA 1+; SEG#(MANUAL) 3.62 x10^3/uL (1.8-6.8); SEGS% (MANUAL) 71 % (42-75)
[2019-10-11 05:49] LABS: <PLATELET ESTIMATE> DECREASED; <PLT MORPHOLOGY> NORMAL PLT MORPH; TEAR DROPS 1+
[2019-10-11 05:53] LABS: SPHEROCYTES 1+
[2019-10-11] MEDS: LEVOTHYROXINE 125 MCG TABLET PO SCH (06:41)
[2019-10-11] MEDS: INSULIN LISPRO 100 UNITS/ML, PEN SQ-INSULIN SCH ×4 (06:48→21:00)
[2019-10-11] MEDS ORDERED: HYDROmorphone 1 MG/ML, 1ML INJ IV ONE (09:00)
[2019-10-11] MEDS: NYSTATIN/TRIAMCINOLONE OINT 15GM TP SCH ×2 (09:00→21:50)
[2019-10-11 09:12] VITALS: BP 143/77
[2019-10-11] MEDS: IRBESARTAN 150 MG TABLET PO SCH ×2 (09:52→21:49)
[2019-10-11] MEDS: GABAPENTIN 300 MG CAPSULE PO SCH ×2 (09:53→21:49)
[2019-10-11] MEDS: DILTIAZEM 300 MG CAP.ER.24H PO SCH (09:53)
[2019-10-11] MEDS: FOLIC ACID 1 MG TABLET PO SCH (09:53)
[2019-10-11] MEDS: LIDO PO PRN ×3 (11:38→23:25)
[2019-10-11] MEDS: BENADRYL PO PRN ×3 (11:38→23:25)
[2019-10-11] MEDS: PREDNISOLONE PO PRN ×3 (11:38→23:25)
[2019-10-11] MEDS: MAALOX PO PRN ×3 (11:38→23:25)
[2019-10-11] MEDS: CARAFATE PO PRN ×3 (11:38→23:25)
[2019-10-11] MEDS ORDERED: HYDROmorphone 1 MG/ML, 1ML INJ IVPush PRN (12:00)
[2019-10-11 13:01] VITALS: BP 157/83
[2019-10-11 18:56] VITALS: BP 148/71
[2019-10-12] MEDS: HYDROmorphone 1 MG/ML, 1ML INJ IVPush PRN ×7 (03:11→22:58)
[2019-10-12 03:13] VITALS: BP 133/74
[2019-10-12] MEDS: LEVOTHYROXINE 125 MCG TABLET PO SCH (06:32)
[2019-10-12 06:58] LABS: MEAN CORPUSCULAR HEMOGLOBIN 32.3 pg (27.0-34.8); MEAN CORPUSCULAR HGB CONC 32.8 g/dL (32.4-35.8); MEAN CORPUSCULAR VOLUME 98.5 fL (80-100); MEAN PLATELET VOLUME 9.3 fL (7.4-10.4); PLATELET COUNT 53 x10^3/uL (130-400); RED BLOOD COUNT 2.64 x10^6/uL (3.82-5.3); RED CELL DISTRIBUTION WIDTH 26.1 % (9.6-15.2)
[2019-10-12] MEDS: INSULIN LISPRO 100 UNITS/ML, PEN SQ-INSULIN SCH ×4 (07:00→20:23)
[2019-10-12 07:29] LABS: MD YES
[2019-10-12 07:31] LABS: <PLATELET ESTIMATE> DECREASED; <PLT MORPHOLOGY> NORMAL PLT MORPH; ANISOCYTOSIS 2+; BAND#(MANUAL) 0.07 x10^3/uL; BANDS%(MANUAL) 1 % (0-7); BASOS#(MANUAL) 0.07 x10^3/uL (0-0.1); BASOS% (MANUAL) 1 % (0-1); EOS#(MANUAL) 0.33 x10^3/uL (0.0-0.4); EOS% (MANUAL) 5 % (1-7); LYMPH#(MANUAL) 0.39 x10^3/uL (1-3.4); LYMPHS% (MANUAL) 6 % (22-44); METAMYELOCYTES# (MANUAL) 0.13 x10^3/uL (0-0); METAMYELOCYTES% (MANUAL) 2 % (0-1); MICROCYTOSIS 1+; MONOS#(MANUAL) 0.46 x10^3/uL (0.3-2.7); MONOS% (MANUAL) 7 % (2-9); NRBC % (MANUAL) 5 % (0-1); OVALOCYTES 1+; POLYCHROMASIA 1+; SEG#(MANUAL) 5.07 x10^3/uL (1.8-6.8); SEGS% (MANUAL) 78 % (42-75); SPHEROCYTES 1+; TEAR DROPS 1+
[2019-10-12 07:32] LABS: BASOPHILLIC STIPPLING 1+
[2019-10-12] MEDS: PREDNISOLONE PO PRN ×3 (08:29→21:55)
[2019-10-12] MEDS: IRBESARTAN 150 MG TABLET PO SCH ×2 (08:29→21:52)
[2019-10-12] MEDS: MAALOX PO PRN ×3 (08:29→21:55)
[2019-10-12] MEDS: FOLIC ACID 1 MG TABLET PO SCH (08:29)
[2019-10-12] MEDS: CARAFATE PO PRN ×3 (08:29→21:55)
[2019-10-12] MEDS: DILTIAZEM 300 MG CAP.ER.24H PO SCH (08:29)
[2019-10-12] MEDS: GABAPENTIN 300 MG CAPSULE PO SCH ×2 (08:29→21:52)
[2019-10-12] MEDS: BENADRYL PO PRN ×3 (08:29→21:55)
[2019-10-12] MEDS: LIDO PO PRN ×3 (08:29→21:55)
[2019-10-12] MEDS: NYSTATIN/TRIAMCINOLONE OINT 15GM TP SCH ×3 (08:30→21:56)
[2019-10-12 09:39] VITALS: BP 133/73
[2019-10-12 12:47] VITALS: BP 137/74
[2019-10-12 18:45] VITALS: BP 158/76
[2019-10-13 02:15] VITALS: BP 135/70
[2019-10-13] MEDS: HYDROmorphone 1 MG/ML, 1ML INJ IVPush PRN ×5 (02:15→15:01)
[2019-10-13 05:11] LABS: MEAN CORPUSCULAR HEMOGLOBIN 31.6 pg (27.0-34.8); MEAN CORPUSCULAR HGB CONC 32.2 g/dL (32.4-35.8); MEAN CORPUSCULAR VOLUME 98.3 fL (80-100); MEAN PLATELET VOLUME 10.4 fL (7.4-10.4); PLATELET COUNT 81 x10^3/uL (130-400); RED BLOOD COUNT 2.53 x10^6/uL (3.82-5.3); RED CELL DISTRIBUTION WIDTH 25.9 % (9.6-15.2)
[2019-10-13 05:18] LABS: ALBUMIN 2.9 g/dL (3.4-5.0); ANION GAP 4 mmol/L (5-15); CALCIUM 8.6 mg/dL (8.5-10.1); CHLORIDE 113 mmol/L (98-107)
[2019-10-13 05:22] LABS: ALANINE AMINOTRANSFERASE 54 U/L (12-78); ALKALINE PHOSPHATASE 80 U/L (45-117); CREATININE 0.74 mg/dL (0.55-1.02); TOTAL PROTEIN 5.3 g/dL (6.4-8.2)
[2019-10-13] MEDS: LEVOTHYROXINE 125 MCG TABLET PO SCH (05:33)
[2019-10-13 05:50] LABS: MD YES
[2019-10-13 05:52] LABS: ANISOCYTOSIS 1+; LYMPHS% (MANUAL) 13 % (22-44); MICROCYTOSIS 1+; MONOS#(MANUAL) 0.46 x10^3/uL (0.3-2.7); MONOS% (MANUAL) 10 % (2-9); NRBC % (MANUAL) 1 % (0-1); SEG#(MANUAL) 3.54 x10^3/uL (1.8-6.8); SEGS% (MANUAL) 77 % (42-75)
[2019-10-13 05:53] LABS: OVALOCYTES 1+; POLYCHROMASIA 1+; SPHEROCYTES 1+; TEAR DROPS 1+
[2019-10-13 05:54] LABS: <PLATELET ESTIMATE> DECREASED; <PLT MORPHOLOGY> NORMAL PLT MORPH
[2019-10-13] MEDS: INSULIN LISPRO 100 UNITS/ML, PEN SQ-INSULIN SCH ×4 (06:57→21:06)
[2019-10-13 06:59] VITALS: BP 148/76
[2019-10-13] MEDS: IRBESARTAN 150 MG TABLET PO SCH ×2 (08:44→21:01)
[2019-10-13] MEDS: GABAPENTIN 300 MG CAPSULE PO SCH ×2 (08:44→21:01)
[2019-10-13] MEDS: FOLIC ACID 1 MG TABLET PO SCH (08:44)
[2019-10-13] MEDS: DILTIAZEM 300 MG CAP.ER.24H PO SCH (08:44)
[2019-10-13] MEDS: NYSTATIN/TRIAMCINOLONE OINT 15GM TP SCH ×2 (08:46→21:13)
[2019-10-13] MEDS: BENADRYL PO PRN ×2 (10:19→21:00)
[2019-10-13] MEDS: CARAFATE PO PRN ×2 (10:19→21:00)
[2019-10-13] MEDS: LIDO PO PRN ×2 (10:19→21:00)
[2019-10-13] MEDS: PREDNISOLONE PO PRN ×2 (10:19→21:00)
[2019-10-13] MEDS: MAALOX PO PRN ×2 (10:19→21:00)
[2019-10-13 13:17] VITALS: BP 150/71
[2019-10-13 18:52] VITALS: BP 144/79
[2019-10-13] MEDS: HYDROcodone/APAP 5/325 TABLET PO PRN (23:12)
[2019-10-14 03:49] VITALS: BP 137/71
[2019-10-14 04:53] LABS: ANION GAP 6 mmol/L (5-15); CALCIUM 8.5 mg/dL (8.5-10.1); CHLORIDE 110 mmol/L (98-107)
[2019-10-14 04:58] LABS: ALANINE AMINOTRANSFERASE 63 U/L (12-78); ALKALINE PHOSPHATASE 85 U/L (45-117); BILIRUBIN,TOTAL 1.1 mg/dL (0.2-1.0); CREATININE 0.71 mg/dL (0.55-1.02); TOTAL PROTEIN 5.7 g/dL (6.4-8.2)
[2019-10-14] MEDS: CARAFATE PO PRN ×3 (05:00→15:00)
[2019-10-14] MEDS: BENADRYL PO PRN ×3 (05:00→15:00)
[2019-10-14] MEDS: LIDO PO PRN ×3 (05:00→15:00)
[2019-10-14] MEDS: PREDNISOLONE PO PRN ×3 (05:00→15:00)
[2019-10-14] MEDS: MAALOX PO PRN ×3 (05:00→15:00)
[2019-10-14 05:48] LABS: MD YES; MEAN CORPUSCULAR HEMOGLOBIN 31.6 pg (27.0-34.8); MEAN CORPUSCULAR HGB CONC 32.2 g/dL (32.4-35.8); MEAN CORPUSCULAR VOLUME 98.1 fL (80-100); MEAN PLATELET VOLUME 10.4 fL (7.4-10.4); PLATELET COUNT 147 x10^3/uL (130-400); RED BLOOD COUNT 3.01 x10^6/uL (3.82-5.3); RED CELL DISTRIBUTION WIDTH 25.7 % (9.6-15.2)
[2019-10-14 05:49] LABS: LYMPH#(MANUAL) 0.44 x10^3/uL (1-3.4); LYMPHS% (MANUAL) 9 % (22-44); NRBC % (MANUAL) 1 % (0-1)
[2019-10-14 05:50] LABS: ANISOCYTOSIS 2+; EOS#(MANUAL) 0.15 x10^3/uL (0.0-0.4); EOS% (MANUAL) 3 % (1-7); MICROCYTOSIS 1+; MONOS#(MANUAL) 0.49 x10^3/uL (0.3-2.7); MONOS% (MANUAL) 10 % (2-9); OVALOCYTES 1+; POLYCHROMASIA 1+; SEG#(MANUAL) 3.82 x10^3/uL (1.8-6.8); SEGS% (MANUAL) 78 % (42-75); SPHEROCYTES 1+
[2019-10-14 05:51] LABS: <PLATELET ESTIMATE> ADEQUATE; <PLT MORPHOLOGY> NORMAL PLT MORPH; TEAR DROPS 1+
[2019-10-14] MEDS: LEVOTHYROXINE 125 MCG TABLET PO SCH (05:56)
[2019-10-14] MEDS: HYDROcodone/APAP 5/325 TABLET PO PRN ×2 (05:56→12:23)
[2019-10-14] MEDS: INSULIN LISPRO 100 UNITS/ML, PEN SQ-INSULIN SCH ×2 (07:00→11:00)
[2019-10-14] MEDS: NYSTATIN/TRIAMCINOLONE OINT 15GM TP SCH (09:00)
[2019-10-14] MEDS: IRBESARTAN 150 MG TABLET PO SCH (09:40)
[2019-10-14] MEDS: GABAPENTIN 300 MG CAPSULE PO SCH (09:41)
[2019-10-14] MEDS: DILTIAZEM 300 MG CAP.ER.24H PO SCH (09:41)
[2019-10-14] MEDS: FOLIC ACID 1 MG TABLET PO SCH (09:41)
[2019-10-14] MEDS ORDERED: MORP-30 PO (13:45)
[2019-10-14] MEDS ORDERED: HYDR-3237 PO (13:45)
== END 2019-10-14 17:40 | disposition home or self-care (01) | DRG 811 ==
LOC: ED 20:37 → EDIP 21:07 → 4EST 23:30 → 4NW 10-09 03:23
PROVIDERS: ADMIT Family Medicine; ATTEND Hospitalist
PROC: 30233N1 Transfusion of Nonautologous Red Blood Cells into Peripheral Vein, Percutaneous Approach (ICD-10-PCS; 2019-10-04)
PROC: 07DR3ZX Extraction of Iliac Bone Marrow, Percutaneous Approach, Diagnostic (ICD-10-PCS; 2019-10-05)
PROC: 0DJ08ZZ Inspection of Upper Intestinal Tract, Via Natural or Artificial Opening Endoscopic (ICD-10-PCS; principal; 2019-10-06 08:30)
PROC: 30233R1 Transfusion of Nonautologous Platelets into Peripheral Vein, Percutaneous Approach (ICD-10-PCS; 2019-10-07)
DX: D46.9 Myelodysplastic syndrome, unspecified (principal); N17.0 Acute kidney failure with tubular necrosis; D61.818 Other pancytopenia; J96.10 Chronic respiratory failure, unspecified whether with hypoxia or hypercapnia; N39.0 Urinary tract infection, site not specified; D62 Acute posthemorrhagic anemia; D46.21 Refractory anemia with excess of blasts 1; D53.9 Nutritional anemia, unspecified; D75.89 Other specified diseases of blood and blood-forming organs; D89.9 Disorder involving the immune mechanism, unspecified; E66.01 Morbid (severe) obesity due to excess calories; E78.5 Hyperlipidemia, unspecified; E11.65 Type 2 diabetes mellitus with hyperglycemia; E83.42 Hypomagnesemia; H35.30 Unspecified macular degeneration; I10 Essential (primary) hypertension; K12.0 Recurrent oral aphthae; K12.1 Other forms of stomatitis; K12.30 Oral mucositis (ulcerative), unspecified; E11.40 Type 2 diabetes mellitus with diabetic neuropathy, unspecified; E03.9 Hypothyroidism, unspecified; K74.60 Unspecified cirrhosis of liver; K76.0 Fatty (change of) liver, not elsewhere classified; M34.9 Systemic sclerosis, unspecified; Z79.82 Long term (current) use of aspirin; Z79.899 Other long term (current) drug therapy; Z82.49 Family history of ischemic heart disease and other diseases of the circulatory system; Z87.891 Personal history of nicotine dependence; Z88.2 Allergy status to sulfonamides; D17.9 Benign lipomatous neoplasm, unspecified; Z68.34 Body mass index [BMI] 34.0-34.9, adult; Z20.828 Contact with and (suspected) exposure to other viral communicable diseases
CPT/HCPCS: 36415; 38222; 70491; 71250; 74176; 76700; 77012; 80048; 80053; 80074; 81001; 82607; 82728; 82962; 83010; 83540; 83550; 83615; 83735; 84443; 85014; 85018; 85025; 85045; 85049; 85060; 85097; 85379; 85384; 85610; 85651; 85730; 86038; 86039; 86225; 86235; 86308; 86850; 86900; 86923; 87077; 87081; 87086; 87186; 87324; 87521; 87522; 87635; 87806; 87880; 88237; 88264; 88280; 88305; 88311; 88313; 93005; 96374; 96375; 96376; 99156; 99157; 99291; G0378; J0696; J1170; J2250; J2354; J2405; J2704; J3010; Q9967; C9113; G0475; J1450; J1815; J2310; J3475; J7030; J7120; J7510; P9016; P9035

== ENCOUNTER 2020-01-02 08:52 | Outpatient (CLI) | payer MEDICARE ==
[~2020-01-02 08:52] MED LIST changes: +AZIT500T PO; +DILT300C42 PO; +DILT360C32 PO; +FOLI-17 PO; +GABA600T7 PO; +HYDR-3237 PO; +LEVO25TA4 PO; +METF10007 PO; +METH2.5T PO; +MORP-30 PO; +REGADENOSON 0.4 MG/5 ML SYRINGE ONE; +TRIA15OI TP; +VITAMIN D PO
== END 2020-01-02 23:59 | disposition home or self-care (01) ==
LOC: CVU 08:52 → CFH 23:59
PROVIDERS: ATTEND Internal Medicine Cardiovascular Disease
DX: I08.0 Rheumatic disorders of both mitral and aortic valves (principal); I11.9 Hypertensive heart disease without heart failure; R06.02 Shortness of breath
CPT/HCPCS: 78452; 93017; 93306; A9502; J2785

== ENCOUNTER → 2020-05-14 | Outpatient (CLI) | payer MEDICARE ==
[~2020-05-14] MED LIST changes: -FOLI-17 PO; +FOLI1TAB32 PO; -REGADENOSON 0.4 MG/5 ML SYRINGE ONE
== END | disposition home or self-care (01) ==
LOC: CFH 12:25
PROVIDERS: ATTEND Internal Medicine Cardiovascular Disease
DX: Z13.6 Encounter for screening for cardiovascular disorders (principal); E78.2 Mixed hyperlipidemia
CPT/HCPCS: 75571

== ENCOUNTER → 2020-07-30 | Outpatient (CLI) | payer MEDICARE ==
[~2020-07-30] MED LIST changes: +BLOO1EAC91 SC; +FLUT1AER INH; +FURO10SO PO; +GLUC1VIA5 IM; +INSU100I13 SQ-INSULIN; +LANC1COM6 SC; -OMEP40CA42 PO; +OMEP40CA8 PO; +SPIR100T PO
== END | disposition home or self-care (01) ==
LOC: CFH 16:06
PROVIDERS: ATTEND Physician Assistant
DX: R16.1 Splenomegaly, not elsewhere classified (principal); E11.65 Type 2 diabetes mellitus with hyperglycemia; R16.0 Hepatomegaly, not elsewhere classified; K76.6 Portal hypertension; R18.8 Other ascites; D46.9 Myelodysplastic syndrome, unspecified; D50.9 Iron deficiency anemia, unspecified; J44.9 Chronic obstructive pulmonary disease, unspecified; R74.8 Abnormal levels of other serum enzymes; Z99.81 Dependence on supplemental oxygen; Z90.49 Acquired absence of other specified parts of digestive tract
CPT/HCPCS: 76700

== ENCOUNTER → 2020-08-06 | Outpatient (CLI) | payer MEDICARE ==
[~2020-08-06] MED LIST changes: +CYAN100072 PO; +EZET10TA70 PO; +FERR324T5 PO
[2020-08-06 12:07] LABS: BASOPHILS % (AUTO) 1 % (0-1); EOSINOPHILS % (AUTO) 1 % (1-7); LYMPHOCYTES % (AUTO) 7 % (22-44); MEAN CORPUSCULAR HEMOGLOBIN 24.8 pg (27.0-34.8); MEAN CORPUSCULAR HGB CONC 31.7 g/dL (32.4-35.8); MEAN PLATELET VOLUME 9.8 fL (7.4-10.4); MONOCYTES % (AUTO) 5 % (2-9); NEUTROPHILS % (AUTO) 87 % (42-75); PLATELET COUNT 89 x10^3/uL (130-400); RED BLOOD COUNT 4.73 x10^6/uL (3.82-5.3); RED CELL DISTRIBUTION WIDTH 19.9 % (9.6-15.2)
[2020-08-06 12:11] LABS: ALANINE AMINOTRANSFERASE 73 U/L (12-78); ALBUMIN 3.6 g/dL (3.4-5.0); ANION GAP 7 mmol/L (5-15); CALCIUM 9.3 mg/dL (8.5-10.1); CHLORIDE 108 mmol/L (98-107)
[2020-08-06 12:13] LABS: ALKALINE PHOSPHATASE 87 U/L (45-117); BILIRUBIN,TOTAL 0.4 mg/dL (0.2-1.0); TOTAL PROTEIN 7.4 g/dL (6.4-8.2)
== END | disposition home or self-care (01) ==
LOC: STAR 10:11
PROVIDERS: ATTEND Internal Medicine Gastroenterology
DX: Z01.812 Encounter for preprocedural laboratory examination (principal); D50.9 Iron deficiency anemia, unspecified; Z20.822 Contact with and (suspected) exposure to COVID-19
CPT/HCPCS: 36415; 80053; 85025; U0003; U0005

== ENCOUNTER 2020-08-11 07:07 | Day surgery (SDC) | payer MEDICARE ==
[~2020-08-11] VITALS: Ht 167.6 cm; Wt 91.9 kg
[2020-08-11 07:38] VITALS: BP 144/83
[2020-08-11] MEDS ORDERED: FURO20TA3 PO (07:45)
[2020-08-11] MEDS ORDERED: INSU100I34 SQ (07:45)
[2020-08-11] MEDS ORDERED: LIDOCAINE-MPF 1%, 2ML INFIL ONE (08:00)
[2020-08-11] MEDS ORDERED: LACTATED RINGERS 1,000 ML IV SCH (08:00)
[2020-08-11] MEDS ORDERED: CHLORHEXIDINE 15 ML UDC PO ONE (08:00)
[2020-08-11] MEDS ORDERED: LABETALOL 5MG/ML, 20ML IV PRN (09:00)
[2020-08-11] MEDS ORDERED: ONDANSETRON 2MG/ML, 2ML IVPush PRN (09:00)
[2020-08-11] MEDS ORDERED: FENTANYL PF 100 MCG/2ML IV PRN (09:00)
[2020-08-11] MEDS ORDERED: hydrALAzine 20 MG/ML, 1ML IV PRN (09:00)
[2020-08-11] MEDS ORDERED: PROPOFOL 10 MG/ML, 20ML ONE (09:08)
== END 2020-08-11 10:20 | disposition home or self-care (01) ==
LOC: OUT 07:07
PROVIDERS: ATTEND Internal Medicine Gastroenterology
DX: K75.81 Nonalcoholic steatohepatitis (NASH) (principal); K74.60 Unspecified cirrhosis of liver; K21.00 Gastro-esophageal reflux disease with esophagitis, without bleeding; I85.10 Secondary esophageal varices without bleeding; K31.7 Polyp of stomach and duodenum; K76.6 Portal hypertension; K31.89 Other diseases of stomach and duodenum; D50.9 Iron deficiency anemia, unspecified; E11.9 Type 2 diabetes mellitus without complications; I10 Essential (primary) hypertension; D46.9 Myelodysplastic syndrome, unspecified; E89.0 Postprocedural hypothyroidism; Z87.891 Personal history of nicotine dependence; Z88.2 Allergy status to sulfonamides; Z90.49 Acquired absence of other specified parts of digestive tract
CPT/HCPCS: 43251; 82962; 88305; J2704; J7120